=== PATIENT | female | born 1965 | race American Indian/Alaskan Native ===

== ENCOUNTER 2018-07-03 09:02 | Outpatient (CLI) | payer OTHER | END 2018-07-03 09:03 | disposition home or self-care (01) | LOC: C.MAMMO 09:02 | DX: Z12.31 Encounter for screening mammogram for malignant neoplasm of breast (principal) ==

== ENCOUNTER 2018-08-15 08:11 | Day surgery (SDC) | payer OTHER ==
[2018-08-15 08:51] VITALS: BMI 26.8
[2018-08-15] MEDS ORDERED: Propofol 10 mg/ml Inj (20 ML) ONE ×2 (10:16)
[2018-08-15] MEDS ORDERED: Midazolam 2 MG/2 ML VIAL ONE (10:17)
[2018-08-15] MEDS ORDERED: Lactated Ringer's 1,000 ML IV ONE (10:20)
[2018-08-15] MEDS ORDERED: Lidocaine Hydrochloride 5 ML INJ ONE (10:27)
[2018-08-15 12:41] VITALS: RESP 17; O2SAT 100
[2018-08-15 12:42] VITALS: TEMP 97.5
[2018-08-15 12:45] VITALS: BP 135/95; PULSE 86
== END 2018-08-15 12:30 | disposition home or self-care (01) ==
LOC: C.ENDO 08:11
PROVIDERS: ATTEND Internal Medicine Gastroenterology
DX: K64.8 Other hemorrhoids (principal)
CPT/HCPCS: 45378; 84703; J2250; J2704; J7120